=== PATIENT | male | born 1950 | race Caucasian/White ===

== ENCOUNTER → 2022-09-10 | Outpatient (REF) | payer OTHER | LOC: M SFHCDERM 17:22 | PROVIDERS: ATTEND Physician Assistant | DX: D49.2 Neoplasm of unspecified behavior of bone, soft tissue, and skin (principal) | CPT/HCPCS: 11102; 88305; G0463 ==

== ENCOUNTER → 2022-09-26 | Outpatient (REF) | payer OTHER | LOC: M LAB REF 16:31 | PROVIDERS: ATTEND Ophthalmology | DX: D23.111 Other benign neoplasm of skin of right upper eyelid, including canthus (principal) ==

== ENCOUNTER → 2025-05-09 | Outpatient (REF) | payer MEDICARE, OTHER ==
[~2025-05-09] MED LIST: ATOR40TA75 PO; COMBAER6 INH; ECOT81TA5 PO; EZET10TA57 PO; FLUTISP; LISI20TA33 PO; MONT10TA97 PO; NORV5TAB PO
== END ==
LOC: M SFHCDERM 17:38
PROVIDERS: ATTEND Nurse Practitioner Family
DX: B07.8 Other viral warts (principal)